=== PATIENT | female | born 1960 | race Two or more races ===

== ENCOUNTER → 2021-10-31 | Outpatient (CLI) | payer MEDICAID ==
[~2021-10-31] MED LIST: ALBUTEROL SULF 2.5 MG/0.5ML(0.5%) NEB SOLN ONE
== END | disposition home or self-care (01) ==
LOC: RT 11:45
PROVIDERS: ATTEND Internal Medicine Pulmonary Disease
DX: U07.1 COVID-19 (principal)
CPT/HCPCS: 36415; 94060

== ENCOUNTER 2023-01-18 22:19 | Inpatient (IN) | payer OTHER, MEDICAID ==
[~2023-01-18] VITALS: Ht 157.5 cm; Wt 65.9 kg
[2023-01-18 23:54] LABS: Basophils # (auto) 0.1 10 ^3/uL (0-0.2); Basophils % (auto) 0.7 % (0.0-2.0); Eosinophils # (auto) 0.2 10 ^3/uL (0-0.8); Eosinophils % (auto) 1.2 % (0.0-7.0); Hematocrit 41.3 % (36.0-46.0); Hemoglobin 13.4 g/dL (12.2-16.2); Lymphocytes # (auto) 1.9 10 ^3/uL (0.4-5.4); Lymphocytes % (auto) 12.2 % (10.0-50.0); Mean Corpuscular Hemoglobin 29.4 pg (28.0-32.0); Mean Corpuscular Hgb Conc. 32.4 g/dL (32.0-36.0); Mean Corpuscular Volume 90.8 fL (80.0-100.0); Monocytes # (auto) 0.8 10 ^3/uL (0-1.3); Monocytes % (auto) 5.1 % (0.0-12.0); Neutrophils # (auto) 12.9 10 ^3/uL (1.6-8.6); Neutrophils % (auto) 80.8 % (37.0-80.0); Nucleated Red Blood Cells % 0.1 %; Red Blood Cells 4.55 10^6/uL (4.0-5.20)
[2023-01-18 23:57] LABS: Red Cell Distribution Width 21.1 % (11.8-14.3)
[2023-01-19 00:03] LABS: Albumin 3.3 g/dL (3.4-5.0); BUN/Creatinine Ratio 24.3 (10.0-20.0)
[2023-01-19 00:06] LABS: Bilirubin, Total 0.3 mg/dL (0.2-1.0); Total Protein 7.1 g/dL (6.4-8.2)
[2023-01-19 04:16] LABS: Urine Bacteria MOD /hpf (None Seen); Urine Blood Negative /uL (Negative); Urine Hyaline Cast FEW /lpf (0 - 2); Urine Mucus FEW (None Seen); Urine Specific Gravity 1.021 (1.001-1.035); Urine WBC 4 /hpf (0 - 5)
[2023-01-19] MEDS ORDERED: OXYCODONE W/ ACETAMINOPHEN 5/325MG TABLET PO ONE ×2 (06:45)
[2023-01-19] MEDS ORDERED: MORPHINE SULFATE INJ 2 MG/ml SYRG IV PRN (07:00)
[2023-01-19] MEDS ORDERED: HYDROcodone-ACET 5/325MG TAB PO PRN (07:00)
[2023-01-19] MEDS ORDERED: ACETAMINOPHEN 325 MG TAB PO PRN (07:00)
[2023-01-19] MEDS ORDERED: NITROGLYCERIN 0.4 MG SL TAB SL PRN (07:00)
[2023-01-19] MEDS: LEVOTHYROXINE SODIUM 50 MCG TAB PO SCH (07:02)
[2023-01-19] MEDS: ONDANSETRON HCL 4 MG/2 ML VIAL IV PRN ×2 (07:51→12:59)
[2023-01-19] MEDS ORDERED: levoFLOXacin 250MG 50 ML IV SCH (08:00)
[2023-01-19] MEDS: XARELTO 2.5 MG PO SCH ×2 (10:00→22:00)
[2023-01-19] MEDS: FUROSEMIDE 40 MG TAB PO SCH (10:00)
[2023-01-19] MEDS: LOSARTAN POTASSIUM 50 MG TAB PO SCH (10:00)
[2023-01-19] MEDS: CLOPIDOGREL BISULFATE 75 MG TAB PO SCH (10:53)
[2023-01-19] MEDS: levoFLOXacin 500MG 100 ML IV SCH (11:00)
[2023-01-19 12:18] LABS: INR 0.97 (0.9-1.15); Partial Thromboplastin Time 24.9 sec (24.6-33.4)
[2023-01-19] MEDS: OXYCODONE W/ ACETAMINOPHEN 5/325MG TABLET PO PRN ×3 (13:54→22:17)
[2023-01-19] MEDS ORDERED: GABA600T PO (14:19)
[2023-01-19] MEDS ORDERED: BACL10TA PO (14:19)
[2023-01-19] MEDS ORDERED: BUSP15TA60 PO (14:19)
[2023-01-19] MEDS ORDERED: VENL150C3 PO (14:19)
[2023-01-19] MEDS: PROMETHAZINE HCL 25 MG/ML 1ML IV PRN ×2 (15:37→22:16)
[2023-01-19] MEDS ORDERED: PERCOT PO (19:01)
[2023-01-19] MEDS ORDERED: METO25TA93 PO (19:01)
[2023-01-19] MEDS ORDERED: BUSP10TA31 PO (19:01)
[2023-01-19 22:00] VITALS: BP 104/67
[2023-01-19] MEDS: ATORVASTATIN 20 MG TAB PO SCH (22:16)
[2023-01-19] MEDS: PANTOPRAZOLE 40 MG/10 ML VIAL INJ IV SCH (22:16)
[2023-01-20] MEDS: OXYCODONE W/ ACETAMINOPHEN 5/325MG TABLET PO PRN ×5 (03:11→19:57)
[2023-01-20 05:00] VITALS: BP 132/73
[2023-01-20] MEDS: PROMETHAZINE HCL 25 MG/ML 1ML IV PRN ×4 (06:43→19:57)
[2023-01-20] MEDS: LEVOTHYROXINE SODIUM 50 MCG TAB PO SCH (06:43)
[2023-01-20 07:07] LABS: BUN/Creatinine Ratio 31.6 (10.0-20.0); Calcium 8.9 mg/dL (8.5-10.1); Potassium 4.6 mmol/L (3.5-5.1)
[2023-01-20 07:08] LABS: Basophils # (auto) 0.1 10 ^3/uL (0-0.2); Basophils % (auto) 1.3 % (0.0-2.0); Eosinophils # (auto) 0.3 10 ^3/uL (0-0.8); Hemoglobin 12.7 g/dL (12.2-16.2); Lymphocytes # (auto) 2.4 10 ^3/uL (0.4-5.4); Lymphocytes % (auto) 31.8 % (10.0-50.0); Mean Corpuscular Hemoglobin 29.4 pg (28.0-32.0); Mean Corpuscular Hgb Conc. 32.5 g/dL (32.0-36.0); Mean Corpuscular Volume 90.5 fL (80.0-100.0); Monocytes # (auto) 0.4 10 ^3/uL (0-1.3); Monocytes % (auto) 4.8 % (0.0-12.0); Neutrophils # (auto) 4.5 10 ^3/uL (1.6-8.6); Neutrophils % (auto) 58.1 % (37.0-80.0); Nucleated Red Blood Cells % 0.1 %; Red Blood Cells 4.31 10^6/uL (4.0-5.20); White Blood Cell 7.7 10^3/uL (4.4-10.8)
[2023-01-20 07:12] LABS: Red Cell Distribution Width 20.6 % (11.8-14.3)
[2023-01-20 09:00] VITALS: BP 135/78
[2023-01-20] MEDS: XARELTO 2.5 MG PO SCH ×2 (10:00→22:00)
[2023-01-20] MEDS: PANTOPRAZOLE 40 MG/10 ML VIAL INJ IV SCH ×2 (10:22→21:09)
[2023-01-20] MEDS: FUROSEMIDE 40 MG TAB PO SCH (10:23)
[2023-01-20] MEDS: CLOPIDOGREL BISULFATE 75 MG TAB PO SCH (10:23)
[2023-01-20] MEDS: LOSARTAN POTASSIUM 50 MG TAB PO SCH (10:24)
[2023-01-20] MEDS: levoFLOXacin 500MG 100 ML IV SCH (10:24)
[2023-01-20 13:00] VITALS: BP 134/76
[2023-01-20] MEDS: GABAPENTIN 300 MG CAP PO SCH ×2 (13:35→21:06)
[2023-01-20 16:44] VITALS: BP 109/76
[2023-01-20] MEDS: ATORVASTATIN 20 MG TAB PO SCH (21:06)
[2023-01-20 22:00] VITALS: BP 97/71
[2023-01-21] MEDS: OXYCODONE W/ ACETAMINOPHEN 5/325MG TABLET PO PRN ×3 (00:14→10:15)
[2023-01-21] MEDS: PROMETHAZINE HCL 25 MG/ML 1ML IV PRN ×2 (00:14→10:12)
[2023-01-21 05:00] VITALS: BP 130/87
[2023-01-21] MEDS: GABAPENTIN 300 MG CAP PO SCH ×2 (05:31→14:09)
[2023-01-21] MEDS: LEVOTHYROXINE SODIUM 50 MCG TAB PO SCH (06:52)
[2023-01-21 08:00] VITALS: BP 117/72
[2023-01-21] MEDS ORDERED: LEVO500T31 PO (08:08)
[2023-01-21 08:50] VITALS: BP 117/72
[2023-01-21] MEDS: XARELTO 2.5 MG PO SCH (10:00)
[2023-01-21] MEDS: FUROSEMIDE 40 MG TAB PO SCH (10:00)
[2023-01-21] MEDS: PANTOPRAZOLE 40 MG/10 ML VIAL INJ IV SCH (10:11)
[2023-01-21] MEDS: LOSARTAN POTASSIUM 50 MG TAB PO SCH (10:12)
[2023-01-21] MEDS: CLOPIDOGREL BISULFATE 75 MG TAB PO SCH (10:12)
[2023-01-21] MEDS: levoFLOXacin 500MG 100 ML IV SCH (10:12)
[2023-01-21 12:58] VITALS: BP 117/76
[2023-01-21 13:45] VITALS: BP 117/60
== END 2023-01-21 14:51 | disposition home or self-care (01) | DRG 871 ==
LOC: EDBD 22:19 → ER 22:22 → TELE 01-19 06:53 → TELE-CENTR 01-19 18:29
PROVIDERS: ADMIT Nurse Practitioner; ATTEND Family Medicine
DX: A41.9 Sepsis, unspecified organism (principal); J18.9 Pneumonia, unspecified organism; N39.0 Urinary tract infection, site not specified; I13.0 Hypertensive heart and chronic kidney disease with heart failure and stage 1 through stage 4 chronic kidney disease, or unspecified chronic kidney disease; Z20.822 Contact with and (suspected) exposure to COVID-19; I25.10 Atherosclerotic heart disease of native coronary artery without angina pectoris; J44.9 Chronic obstructive pulmonary disease, unspecified; E78.00 Pure hypercholesterolemia, unspecified; E03.9 Hypothyroidism, unspecified; N18.9 Chronic kidney disease, unspecified; I50.9 Heart failure, unspecified; G89.4 Chronic pain syndrome; R55 Syncope and collapse; Z88.0 Allergy status to penicillin; Z88.2 Allergy status to sulfonamides; I25.2 Old myocardial infarction; Z95.5 Presence of coronary angioplasty implant and graft; Z79.82 Long term (current) use of aspirin; Z79.02 Long term (current) use of antithrombotics/antiplatelets
CPT/HCPCS: 36415; 72125; 80048; 80053; 81001; 83880; 84484; 85025; 85610; 85730; 87040; 87086; 87426; 93005; 93306; 93886; 96365; 96366; C9113; G0378; J1956; J2405